=== PATIENT | male | born 1935 | race Caucasian/White ===

== ENCOUNTER 2017-07-24 12:42 | Emergency (ER) | payer OTHER ==
[~2017-07-24] VITALS: Ht 180.3 cm; Wt 103.0 kg
--- NOTE | ~2017-07-24 | EKG ---
[address] [address] ELECTROCARDIOGRAM REPORT Name: ALEX MYERS Room #: DEP [facility]#: [id number] Admission: 07/24/17 Attend Phys: Discharge: 07/24/17 Date of : 37 Report #: [id number] THIS REPORT FOR: //name// [facility] ED Test Date: 2017-07-24 Test Time: 12:46:22 Pat Name: ALEX MYERS Department: Room: Gender: M [employer]: [facility] : 1935 Requested By: Ashly Harrison Order Number: [id number] MD: Jairo Contreras Measurements Intervals [place] Rate: 78 P: 54 AK: 189 QRS: 39 QRSD: 84 T: 62 QT: 384 QTc: 438 Interpretive Statements Sinus rhythm Low voltage, precordial leads Compared to ECG 11/24/2014 07:26:12 No significant changes Electronically Signed On 07-24-2017 16:17:19 CDT by Jairo Contreras [email or web address] <ELECTRONICALLY SIGNED> By: Jairo Contreras MD 07/24/17 1617 D: 05/1245 45 Jairo Contreras MD /JAVON
[~2017-07-24 12:42] MED LIST: ASPIRIN EC81 M1 PO; ASPIRIN325 PO; AVODART0.5 MG PO; CIALIS20 MG PO; CRESTOR10 MG PO; EFFIENT10 MG PO; FISH OIL 1,001000 M1 PO; LIPITOR10 MG PO; PROVENTIL HFA6.7 G1 INH
[2017-07-24 13:08] LABS: BASOPHILS 0.9 % (0.0-2.0); EOSINOPHILS 4.3 % (0.0-3.0); HEMATOCRIT 39.3 % (42.0-52.0); HEMOGLOBIN 13.5 gm/dL (14.0-18.0); LYMPHOCYTES 29.9 % (24.0-44.0); MCH 30.2 pg (26.0-34.0); MCHC 34.5 g/dL (28.0-37.0); MCV 87.6 fL (80.0-100.0); MONOCYTES 6.3 % (1.0-8.0); PLATELET COUNT 142 thou/uL (150-400); POLYS 58.6 % (36.0-66.0); RBC 4.48 mil/uL (4.50-6.00); WBC 5.1 thou/uL (4.0-11.0)
[2017-07-24] MEDS ORDERED: ALEVE220 MG PO (13:13)
[2017-07-24] MEDS ORDERED: ASPIR 8181 MG PO (13:13)
[2017-07-24 13:14] LABS: ANION GAP 9 mmol/L (7-16); BUN 26 mg/dL (7-18); CALCIUM 10.1 mg/dL (8.5-10.1); CHLORIDE 105 mmol/L (98-107); CO2 26 mmol/L (21-32); CREATININE 1.3 mg/dL (0.7-1.3); GLUCOSE 152 mg/dL (74-106); POTASSIUM 4.5 mmol/L (3.5-5.1); SODIUM 140 mmol/L (136-145)
[2017-07-24] MEDS ORDERED: FLOMAX0.4 MG PO (13:14)
[2017-07-24] MEDS ORDERED: LIVALO4 MG PO (13:14)
[2017-07-24] MEDS ORDERED: METFORMIN HCL500 MG PO (13:14)
[2017-07-24] MEDS ORDERED: OXYBUTYNIN 5 MG5 M2 PO (13:15)
[2017-07-24 13:23] LABS: TROPONIN-I < 0.04 ng/mL (<0.06)
== END 2017-07-24 14:58 | disposition home or self-care (01) ==
LOC: ER 12:42
PROVIDERS: Emergency Medicine
DX: R07.89 Other chest pain (principal); F17.210 Nicotine dependence, cigarettes, uncomplicated; E78.5 Hyperlipidemia, unspecified; E11.9 Type 2 diabetes mellitus without complications; E78.00 Pure hypercholesterolemia, unspecified; Z90.89 Acquired absence of other organs

== ENCOUNTER → 2019-09-30 | Outpatient (CLI) | payer OTHER ==
[~2019-09-30] MED LIST changes: +ALEVE220 MG PO; +ASPIR 8181 MG PO; +FLOMAX0.4 MG PO; +LIVALO4 MG PO; +METFORMIN HCL500 MG PO; +OXYBUTYNIN 5 MG5 M2 PO
== END ==
LOC: SJCVC 10:32
PROVIDERS: ATTEND Internal Medicine Cardiovascular Disease
DX: R94.31 Abnormal electrocardiogram [ECG] [EKG] (principal); I25.10 Atherosclerotic heart disease of native coronary artery without angina pectoris; I73.9 Peripheral vascular disease, unspecified; E78.00 Pure hypercholesterolemia, unspecified; I35.0 Nonrheumatic aortic (valve) stenosis; I10 Essential (primary) hypertension; Z79.82 Long term (current) use of aspirin; Z79.899 Other long term (current) drug therapy; Z87.891 Personal history of nicotine dependence; Z82.49 Family history of ischemic heart disease and other diseases of the circulatory system

== ENCOUNTER → 2020-01-13 | Outpatient (CLI) | payer OTHER | LOC: SJCVCIMAG 08:41 | PROVIDERS: ATTEND Internal Medicine Cardiovascular Disease | DX: I70.203 Unspecified atherosclerosis of native arteries of extremities, bilateral legs (principal); I35.1 Nonrheumatic aortic (valve) insufficiency; I25.10 Atherosclerotic heart disease of native coronary artery without angina pectoris; Z79.899 Other long term (current) drug therapy; Z87.891 Personal history of nicotine dependence ==